=== PATIENT | female | born 1970 | race African-American/Black ===

== ENCOUNTER 2020-06-12 00:31 | Emergency (ER) | payer MEDICARE, OTHER ==
[~2020-06-12] VITALS: Ht 170.2 cm; Wt 71.0 kg
[~2020-06-12 00:31] MED LIST: FERR-63 PO; LISI-604 PO; MEDR150D9 IM; NITR-87 PO; OMEP20CA4 PO; SIMV10TA2 PO
[2020-06-12] MEDS ORDERED: KETOROLAC 30MG/ML VIAL IM ONE (01:45)
[2020-06-12 01:59] LABS: BASOPHILS % 0.7 % (0.0-2.0); EOSINOPHILS % 2.8 % (0.0-5.0); LYMPHOCYTES % 44.7 % (20.0-50.0); MEAN CORPUSCULAR HEMOGLOBIN 32.6 pg (28.0-32.0); MEAN CORPUSCULAR VOLUME 95.2 fL (81.0-99.0); MEAN PLATELET VOLUME 8.2 fl (7.4-10.4); MONOCYTES % 12.3 % (2.0-8.0); NEUTROPHILS % 39.5 % (40.0-76.0); PLATELET 208 x1000/uL (130-400); RED BLOOD CELL COUNT 3.68 mill/uL (4.2-5.4); RED CELL DISTRIBUTION WIDTH 13.3 % (11.6-14.6)
[2020-06-12 02:02] LABS: CHLORIDE 108 mEq/L (98-107)
[2020-06-12 02:10] VITALS: BP 134/79
[2020-06-12 02:31] LABS: CLARITY URINE CLEAR (CLEAR); COLOR URINE YELLOW (YELLOW); KETONES URINE NEGATIVE (NEGATIVE); LEUKOCYTE ESTERASE URINE NEGATIVE (NEGATIVE); NITRITE URINE NEGATIVE (NEGATIVE); OCCULT BLOOD URINE NEGATIVE (NEGATIVE); PH URINE 7.5 (4.5-8.0); PROTEIN URINE NEGATIVE (NEGATIVE); SPECIFIC GRAVITY URINE 1.006 (1.005-1.030); UROBILINOGEN URINE 0.2 E.U./dL (0.2-1.0)
== END 2020-06-12 04:09 | disposition home or self-care (01) ==
LOC: ER 00:31
DX: R10.13 Epigastric pain (principal); I10 Essential (primary) hypertension; M19.90 Unspecified osteoarthritis, unspecified site; K31.9 Disease of stomach and duodenum, unspecified; Z98.890 Other specified postprocedural states; Z87.19 Personal history of other diseases of the digestive system; Z90.710 Acquired absence of both cervix and uterus; Z88.5 Allergy status to narcotic agent; Z88.0 Allergy status to penicillin
CPT/HCPCS: 36415; 71045; 80053; 81003; 81025; 83690; 85025; 93005; 96372; 99285; J1885

== ENCOUNTER 2021-02-06 21:47 | Emergency (ER) | payer MEDICARE ==
[~2021-02-06] VITALS: Ht 170.2 cm; Wt 73.0 kg
[~2021-02-06 21:47] MED LIST changes: -LISI-604 PO; +LISI20TA31 PO
[2021-02-07] MEDS ORDERED: KETOROLAC 60MG/2ML VIAL IM STA (00:25)
[2021-02-07] MEDS ORDERED: METOCLOPRAMIDE HCL 10MG/2ML VIAL IM ONE (00:30)
[2021-02-07 00:32] VITALS: BP 155/93
[2021-02-07 00:34] LABS: CLARITY URINE CLEAR (CLEAR); COLOR URINE YELLOW (YELLOW); KETONES URINE NEGATIVE (NEGATIVE); LEUKOCYTE ESTERASE URINE TRACE (NEGATIVE); NITRITE URINE NEGATIVE (NEGATIVE); OCCULT BLOOD URINE NEGATIVE (NEGATIVE); PH URINE 6.5 (4.5-8.0); PROTEIN URINE NEGATIVE (NEGATIVE); SPECIFIC GRAVITY URINE 1.018 (1.005-1.030); UROBILINOGEN URINE 0.2 E.U./dL (0.2-1.0)
== END 2021-02-07 03:09 | disposition home or self-care (01) ==
LOC: ER 21:47
DX: G44.89 Other headache syndrome (principal); I10 Essential (primary) hypertension; K21.9 Gastro-esophageal reflux disease without esophagitis; F41.9 Anxiety disorder, unspecified; Z98.890 Other specified postprocedural states; Z88.3 Allergy status to other anti-infective agents; Z88.5 Allergy status to narcotic agent; Z88.0 Allergy status to penicillin
CPT/HCPCS: 70450; 81003; 81025; 96372; 99284; J1885; J2765

== ENCOUNTER 2021-02-26 17:56 | Emergency (ER) | payer MEDICARE, MEDICAID ==
[~2021-02-26] VITALS: Ht 170.2 cm; Wt 73.0 kg
[2021-02-26 18:02] VITALS: BP 152/88
[2021-02-26] MEDS ORDERED: OXYMETAZOLINE HCL NASAL SPRAY 15ML BOTHNSTRLS SCH (19:15)
== END 2021-02-26 19:15 | disposition left against medical advice (07) ==
LOC: ER 18:23
DX: R04.0 Epistaxis (principal); I10 Essential (primary) hypertension; K21.9 Gastro-esophageal reflux disease without esophagitis; M19.90 Unspecified osteoarthritis, unspecified site; Z90.49 Acquired absence of other specified parts of digestive tract; Z90.710 Acquired absence of both cervix and uterus; Z98.890 Other specified postprocedural states; Z88.5 Allergy status to narcotic agent; Z88.0 Allergy status to penicillin
CPT/HCPCS: 99281

== ENCOUNTER 2021-04-06 20:24 | Inpatient (IN) | payer MEDICARE ==
[~2021-04-06] VITALS: Ht 165.1 cm; Wt 57.0 kg
[2021-04-06] MEDS ORDERED: KETOROLAC 30MG/ML VIAL IV STA (21:43)
[2021-04-06] MEDS ORDERED: SODIUM CHLORIDE 0.9% 1,000 ML IV ONE (21:45)
[2021-04-06 22:24] LABS: CLARITY URINE CLEAR (CLEAR); COLOR URINE YELLOW (YELLOW); KETONES URINE NEGATIVE (NEGATIVE); LEUKOCYTE ESTERASE URINE NEGATIVE (NEGATIVE); NITRITE URINE NEGATIVE (NEGATIVE); OCCULT BLOOD URINE 2+ (NEGATIVE); PROTEIN URINE NEGATIVE (NEGATIVE); SPECIFIC GRAVITY URINE 1.007 (1.005-1.030); UROBILINOGEN URINE 0.2 E.U./dL (0.2-1.0)
[2021-04-06 22:37] LABS: HEMATOCRIT. 36.3 % (36.0-48.0); HEMOGLOBIN. 12.2 g/dL (12.0-16.0); MEAN CORPUSCULAR HEMOGLOBIN 31.6 pg (28.0-32.0); MEAN CORPUSCULAR VOLUME 94.1 fL (81.0-99.0); MEAN PLATELET VOLUME 7.9 fl (7.4-10.4); PLATELET 177 x1000/uL (130-400); RED BLOOD CELL COUNT 3.86 mill/uL (4.2-5.4); RED CELL DISTRIBUTION WIDTH 13.9 % (11.6-14.6)
[2021-04-06 22:52] LABS: CHLORIDE 109 mEq/L (98-107)
[2021-04-06 22:55] LABS: HCG SCREEN NEGATIVE
[2021-04-06 23:11] LABS: PLATELET ESTIMATE NORMAL
[2021-04-07] MEDS ORDERED: ONDANSETRON HCL 4MG/2ML INJ IV PRN (06:30)
[2021-04-07] MEDS ORDERED: KETOROLAC 30MG/ML VIAL IV PRN (08:30)
[2021-04-07] MEDS ORDERED: OMEPRAZOLE 20MG CAPSULE EXTENDED RELEASE PO SCH (08:30)
[2021-04-07] MEDS ORDERED: ACETAMINOPHEN 325MG TABLET PO PRN (08:30)
[2021-04-07] MEDS ORDERED: DEXT 5%/0.45% NACL 1000ML 1,000 ML IV SCH (09:00)
[2021-04-07 14:54] VITALS: BP 127/91
== END 2021-04-07 15:25 | disposition left against medical advice (07) | DRG 282 ==
LOC: ER 20:24 → MICUSO 04-07 05:27 → EDBEDREQ 04-07 06:08 → EDBEDREQTM 04-07 06:08
PROVIDERS: ADMIT Internal Medicine; ATTEND Internal Medicine
DX: K85.90 Acute pancreatitis without necrosis or infection, unspecified (principal); U07.1 COVID-19; E87.8 Other disorders of electrolyte and fluid balance, not elsewhere classified; K21.9 Gastro-esophageal reflux disease without esophagitis; D72.819 Decreased white blood cell count, unspecified; M19.90 Unspecified osteoarthritis, unspecified site; I10 Essential (primary) hypertension; Z88.5 Allergy status to narcotic agent; Z90.49 Acquired absence of other specified parts of digestive tract; Z90.711 Acquired absence of uterus with remaining cervical stump; Z88.1 Allergy status to other antibiotic agents; Z88.0 Allergy status to penicillin; Z88.8 Allergy status to other drugs, medicaments and biological substances; Z79.899 Other long term (current) drug therapy; N83.202 Unspecified ovarian cyst, left side
CPT/HCPCS: 36415; 71045; 74176; 76830; 76856; 80053; 81003; 84703; 85025; 93005; 99285; J1885; J2405; J7030; U0003; U0005

== ENCOUNTER 2024-09-24 21:33 | Emergency (ER) | payer MEDICAID, MEDICARE ==
[~2024-09-24] VITALS: Ht 167.6 cm; Wt 60.0 kg
[~2024-09-24 21:33] MED LIST changes: +SIMV-341 PO; -SIMV10TA2 PO
[2024-09-24 21:35] VITALS: TEMP 99.7; O2SAT 99
[2024-09-24] MEDS ORDERED: DICYCLOMINE 10 MG/5 ML ORAL SYR PO STA (22:36)
[2024-09-24] MEDS: DICYCLOMINE HCL 10MG CAPSULE PO NR (22:36)
[2024-09-24] MEDS: MAGNESIUM/ALUMINUM HYDROXIDE/SIMETHICONE 30ML UDC PO STA (22:36)
[2024-09-24] MEDS: ONDANSETRON 4MG ODT PO STA (22:36)
[2024-09-24 22:45] VITALS: BP 146/72; PULSE 122; RESP 16
[2024-09-24] MEDS: FAMOTIDINE 20MG TABLET PO ONE (22:45)
[2024-09-24] MEDS: KETOROLAC 30MG/ML VIAL IM ONE (22:45)
[2024-09-25 01:11] LABS: HEMATOCRIT. 34.8 % (36.0-48.0); HEMOGLOBIN. 11.8 g/dL (12.0-16.0); MEAN CORPUSCULAR HEMOGLOBIN 31.7 pg (28.0-32.0); MEAN CORPUSCULAR HGB CONC 33.9 g/dL (31.0-37.0); MEAN CORPUSCULAR VOLUME 93.6 fL (81.0-99.0); MEAN PLATELET VOLUME 8.2 fl (7.4-10.4); PLATELET 221 x1000/uL (130-400); RED BLOOD CELL COUNT 3.72 mill/uL (4.2-5.4); RED CELL DISTRIBUTION WIDTH 13.8 % (11.6-14.6); WHITE BLOOD COUNT 6.7 x1000/uL (4.5-11.0)
[2024-09-25 01:19] LABS: DIFFERENTIAL COMMENT 1
[2024-09-25 01:20] LABS: CHLORIDE 104 mEq/L (98-107); POTASSIUM 3.4 mEq/L (3.5-5.1); SODIUM 136 mEq/L (136-145)
[2024-09-25 01:21] LABS: CALCIUM 10.4 mg/dL (8.7-10.4); CARBON DIOXIDE 26 mEq/L (21-32)
[2024-09-25 01:26] LABS: CREATININE 0.8 mg/dL (0.6-1.0); GLUCOSE 124 mg/dL (70-105); UREA NITROGEN BLOOD 8 mg/dL (9-23)
[2024-09-25 01:28] LABS: ALANINE AMINOTRANSFERASE 15 IU/L (10-49); ALBUMIN 4.5 g/dL (3.2-4.8); ASPARTATE AMINOTRANSFERASE 25 IU/L (<34); BILIRUBIN TOTAL 0.4 mg/dL (0.1-1.0); PROTEIN TOTAL 7.2 g/dL (6.0-8.3)
[2024-09-25 02:16] LABS: BILIRUBIN DIRECT < 0.1 mg/dL (<=3.0); ETHANOL BLOOD < 10 mg/dL (<10); TROPONIN I HIGH SENSITIVITY < 4 ng/L (3.0-34)
[2024-09-25] MEDS ORDERED: FAMO-135 MT (02:26)
[2024-09-25] MEDS ORDERED: POLY17PO3 MT (02:26)
[2024-09-25 07:19] LABS: NUCLEATED RED BLOOD CELLS 1 /100 WBC; PLATELET ESTIMATE NORMAL
== END 2024-09-25 02:42 | disposition home or self-care (01) ==
LOC: ER 21:33
DX: R10.84 Generalized abdominal pain (principal); K59.00 Constipation, unspecified; I10 Essential (primary) hypertension; Z90.710 Acquired absence of both cervix and uterus; Z79.899 Other long term (current) drug therapy; Z79.3 Long term (current) use of hormonal contraceptives; Z88.1 Allergy status to other antibiotic agents; Z88.0 Allergy status to penicillin; Z90.49 Acquired absence of other specified parts of digestive tract; Z87.19 Personal history of other diseases of the digestive system; Z88.5 Allergy status to narcotic agent
CPT/HCPCS: 36415; 71045; 74176; 93005; 96372; 99285; 80076; 80048; 80320; 83690; 85025; 84484; Q0162; J1885; G0480